=== PATIENT | male | born 2000 | race Two or more races ===

== ENCOUNTER 2024-07-24 15:49 | Emergency (ER) | payer OTHER ==
[~2024-07-24] VITALS: Ht 175.3 cm; Wt 61.5 kg
[2024-07-24] MEDS: ACETAMINOPHEN 500 MG TAB PO ONE (17:24)
[2024-07-24] MEDS ORDERED: AMOX500C PO (18:28)
[2024-07-24] MEDS ORDERED: ONDA-282 PO (18:28)
[2024-07-24] MEDS: KETOROLAC 60MG 2ML VIAL IM ONE (18:33)
[2024-07-24] MEDS: ONDANSETRON 4MG ORAL DISINTEGRATING TAB PO ONE (18:33)
[2024-07-24 19:24] VITALS: BP 100/59; TEMP 97; O2SAT 99
== END 2024-07-24 19:25 | disposition home or self-care (01) ==
LOC: M ED 15:49
DX: J02.8 Acute pharyngitis due to other specified organisms (principal); Z79.2 Long term (current) use of antibiotics; Z79.899 Other long term (current) drug therapy
CPT/HCPCS: 87486; 87581; 87633; 87798; 87880; 96372; 99283; J1885